=== PATIENT | male | born 1975 ===

== ENCOUNTER 2024-04-26 04:00 | Day surgery (SDC) | payer OTHER ==
[~2024-04-26] VITALS: Ht 180.3 cm; Wt 80.0 kg
[2024-04-26] VITALS (255 sets, daily range): BP systolic 87–141; BP diastolic 51–100
[2024-04-26] MEDS ORDERED: CYANOCOBALAMIN 500 MCG/TAB ( B12) PO PRN (07:30)
[2024-04-26] MEDS ORDERED: LACTATED RINGER'S 1,000 ML IV PRN ×3 (07:30→19:00)
[2024-04-26] MEDS ORDERED: diazePAM 5 MG/TAB PO PRN ×2 (07:30→08:30)
[2024-04-26] MEDS ORDERED: PANTOPRAZOLE SODIUM Sesquihydr 40 MG/TAB PO PRN (07:30)
[2024-04-26] MEDS ORDERED: SCOPOLAMINE 1.5 MG DIS TD PRN (07:30)
[2024-04-26] MEDS ORDERED: cloNIDine HCL 0.1 MG/TAB PO PRN (07:30)
[2024-04-26] MEDS ORDERED: ALBUTEROL SULFATE 2.5 MG VIAL IN PRN (07:30)
[2024-04-26] MEDS ORDERED: FAMOTIDINE 20 MG/TAB PO PRN (07:30)
[2024-04-26] MEDS ORDERED: ASCORBIC ACID 4,000 MG in SODIUM CHLORIDE 0.9% 1,000 ML IV SCH (08:00)
[2024-04-26 08:46] LABS: BASO% 0.1 % (0-3); EOS% 2.7 % (0-8); HEMATOCRIT 42.4 % (39.0-50.0); HEMOGLOBIN 13.7 g/dl (14.0-18.0); IMMATURE GRANULOCYTES 0.1 % (0.0-5.0); LYMPH% 24.4 % (15-41); MEAN CELL VOLUME 91.2 fL CALC (80.0-100.0); MEAN CORPUSCULAR HGB 29.5 pG CALC (26.0-32.0); MEAN CORPUSCULAR HGB CONC 32.3 g/dL CAL (32.0-36.0); MONO% 7.3 % (2-13); NEUT# 4.9 thou/uL (1.82-7.42); NEUT% 65.4 % (42-76); RED BLOOD COUNT 4.65 mill/uL (4.70-6.10); RED CELL DISTRI WIDTH 12.3 % (11.5-15.5)
[2024-04-26] MEDS ORDERED: LIDOCAINE HCL 1% (10MG/ML) 100 MG/10 ML MDV VT PRN ×2 (08:55)
[2024-04-26] MEDS ORDERED: LIDOCAINE HCL 1% (10MG/ML) 100 MG/10 ML MDV IV PRN (08:55)
[2024-04-26] MEDS ORDERED: diazePAM 5 MG/TAB VT PRN (08:55)
[2024-04-26] MEDS ORDERED: STERILE WATER FOR IRRIGATION 1,000 ML BTL IR PRN (08:55)
[2024-04-26] MEDS ORDERED: DiphenhydrAMINE HCL 50 MG/ML SDV IV PRN (08:55)
[2024-04-26] MEDS ORDERED: ROCURONIUM BROMIDE 10 MG/ML 5ML VIAL IV PRN (08:55)
[2024-04-26] MEDS ORDERED: cloNIDine HYDROCHLORIDE 100 MCG/ML 10 ML INJ IV PRN (08:55)
[2024-04-26] MEDS ORDERED: OCTREOTIDE ACETATE 100 MCG/VIAL SDV SC PRN (08:55)
[2024-04-26] MEDS ORDERED: cloNIDine HCL 0.1 MG/TAB VT PRN (08:55)
[2024-04-26] MEDS ORDERED: MAGNESIUM SULFATE HEPTAHYDRATE 100 ML IV PRN (08:55)
[2024-04-26] MEDS ORDERED: NALTREXONE HCL 50 MG/TAB VT PRN (08:55)
[2024-04-26] MEDS ORDERED: MIDAZOLAM HCL 2 MG/2 ML VIAL IV PRN (08:55)
[2024-04-26] MEDS ORDERED: THIAMINE HCL 100 MG/ML 2ML VIAL IV PRN (08:55)
[2024-04-26] MEDS ORDERED: SUCCINYLCHOLINE CHLORIDE 20 MG/ML 10ML VIAL IV PRN (08:55)
[2024-04-26] MEDS ORDERED: ONDANSETRON HCl 4 MG/2 ML SDV IV PRN ×3 (08:55→19:00)
[2024-04-26] MEDS ORDERED: PROPOFOL 100 ML IV PRN (08:55)
[2024-04-26] MEDS ORDERED: PROPOFOL 10 MG/ML 100ML VIAL IV PRN (08:55)
[2024-04-26 09:16] LABS: BILIRUBIN, TOTAL 0.5 mg/dL (0.2-1.3); CREATININE 1.1 mg/dL (0.7-1.3); TOTAL PROTEIN 6.4 g/dL (6.3-8.2)
[2024-04-26] MEDS ORDERED: TRAZODONE50 MG PO (09:35)
[2024-04-26] MEDS ORDERED: SEROQUEL100 MG PO (09:37)
[2024-04-26] MEDS ORDERED: WELLBUTRIN XL300 MG (09:38)
[2024-04-26] MEDS ORDERED: TENORMIN25 MG PO (09:40)
[2024-04-26] MEDS ORDERED: METHIMAZOLE5 MG PO (09:41)
[2024-04-26] MEDS ORDERED: POTASSIUM CHLORIDE 10 MEQ/50 ML BAG IV PRN (10:10)
[2024-04-26] MEDS ORDERED: clonazePAM 1 MG/TAB PO PRN (12:15)
[2024-04-26] MEDS ORDERED: NALTREXONE50 MG PO (16:21)
[2024-04-26] MEDS ORDERED: CLONIDINE0.1 MG PO (16:21)
[2024-04-26] MEDS ORDERED: KLONOPIN2 MG PO (16:21)
[2024-04-26] MEDS ORDERED: ACETAMINOPHEN 1,000 MG/100 ML VIAL IV PRN (19:00)
[2024-04-26] MEDS ORDERED: LORazepam 2 MG/ML IV PRN ×2 (19:00)
[2024-04-26] MEDS ORDERED: PROMETHAZINE HCL 25 MG in SODIUM CHLORIDE 0.9% 50 ML IV PRN (19:00)
[2024-04-26] MEDS ORDERED: PROMETHAZINE HCL 12.5 MG in SODIUM CHLORIDE 0.9% 50 ML IV PRN (19:00)
[2024-04-26] MEDS ORDERED: ACETAMINOPHEN 500 MG TAB PO PRN (19:00)
[2024-04-26] MEDS ORDERED: KETOROLAC TROMETHAMINE 30 MG/ML SDV IV PRN (19:00)
[2024-04-26] MEDS ORDERED: HALOPERIDOL LACTATE 5 MG/ML SDV IV PRN (19:00)
[2024-04-26] MEDS ORDERED: PATIENT' OWN MED CONTROLLED 1 EA DOSE IV PRN (21:00)
[2024-04-26] MEDS ORDERED: cloNIDine HCL 0.1 MG/TAB PO SCH (23:00)
[2024-04-27 03:35] VITALS: BP 123/67
[2024-04-27] MEDS ORDERED: cloNIDine HCL 0.1 MG/TAB PO PRN (04:00)
[2024-04-27] MEDS ORDERED: NALTREXONE HCL 50 MG/TAB PO SCH (04:00)
[2024-04-27] MEDS ORDERED: clonazePAM 1 MG/TAB PO PRN ×2 (04:00→08:00)
[2024-04-27 05:45] LABS: BASO% 0.1 % (0-3); HEMOGLOBIN 14.8 g/dl (14.0-18.0); IMMATURE GRANULOCYTES 0.3 % (0.0-5.0); LYMPH% 7.6 % (15-41); MEAN CELL VOLUME 88.9 fL CALC (80.0-100.0); MEAN CORPUSCULAR HGB 29.9 pG CALC (26.0-32.0); MEAN CORPUSCULAR HGB CONC 33.6 g/dL CAL (32.0-36.0); MONO% 1.8 % (2-13); NEUT# 9.3 thou/uL (1.82-7.42); NEUT% 90.2 % (42-76); RED BLOOD COUNT 4.95 mill/uL (4.70-6.10)
[2024-04-27 06:05] LABS: ALBUMIN 4.3 g/dL (3.2-5.0); MAGNESIUM 2.2 mg/dL (1.6-2.3); POTASSIUM 4.3 mmol/l (3.5-5.1); TOTAL PROTEIN 6.9 g/dL (6.3-8.2)
[2024-04-27 06:06] LABS: BILIRUBIN, TOTAL 1.1 mg/dL (0.2-1.3)
[2024-04-27] MEDS ORDERED: cloNIDine HCL 0.1 MG/TAB PO SCH (08:00)
[2024-04-27] MEDS ORDERED: PANTOPRAZOLE SODIUM Sesquihydr 40 MG/TAB PO SCH (08:00)
[2024-04-27] MEDS ORDERED: ACETAMINOPHEN 325 MG/TAB PO SCH (08:00)
[2024-04-27] MEDS ORDERED: ACETAMINOPHEN 500 MG TAB PO PRN (09:00)
[2024-04-27] MEDS ORDERED: Cholecalciferol 2,000 UNIT/TAB PO PRN (09:00)
[2024-04-27] MEDS ORDERED: MAGNESIUM OXIDE 400 MG/TAB PO PRN (09:00)
[2024-04-27] MEDS ORDERED: NALTREXONE HCL 50 MG/TAB PO ONE (09:40)
[2024-04-27] MEDS ORDERED: cloNIDine HCL 0.1 MG/TAB PO ONE (09:40)
[2024-04-27 09:58] VITALS: BP 122/78
== END 2024-04-27 14:13 | disposition left against medical advice (07) | DRG 894 ==
LOC: MS2 04:00 → ANR 04:00
PROVIDERS: ATTEND Anesthesiology
DX: F11.20 Opioid dependence, uncomplicated (principal)
CPT/HCPCS: J1100; J1200; J1630; J2354; J2405; J2550; J2704; J3475